=== PATIENT | male | born 1945 | race Caucasian/White ===

== ENCOUNTER → 2017-02-16 | Outpatient (CLI) | payer OTHER ==
[~2017-02-16] MED LIST: ASPI81CH43; BENA5TAB3; BP MED; LISI-275; LOVA20TA63; NITR0.4S31; PROPANOLOL
== END | disposition home or self-care (01) ==
LOC: LAB 07:00
DX: R79.89 Other specified abnormal findings of blood chemistry (principal)
CPT/HCPCS: 36415; 82565; 84520

== ENCOUNTER → 2017-02-19 | Outpatient (CLI) | payer OTHER ==
[~2017-02-19] MED LIST changes: +ASPI81TA27 PO; +BENA10TA3 PO; +FINA5TAB4 PO; +GABA-494 PO; +LOVA40TA72 PO; +PRO20T OR
== END | disposition home or self-care (01) ==
LOC: LAB 09:23
PROVIDERS: ATTEND Internal Medicine Gastroenterology
DX: Z01.812 Encounter for preprocedural laboratory examination (principal)

== ENCOUNTER → 2017-02-23 | Day surgery (SDC) | payer OTHER ==
[2017-02-19 10:14] LABS: Basophils # (auto) 0 uL; Basophils % (auto) 0.3 % (0.0-2.0); Eosinophils # (auto) 0.1 uL; Eosinophils % (auto) 1.4 % (0.0-7.0); Hematocrit 29.9 % (41.0-53.0); Hemoglobin 10.1 g/dL (13.5-17.5); Lymphocytes # (auto) 3.6 uL; Mean Corpuscular Hgb Conc. 33.6 g/dL (32.0-36.0); Mean Corpuscular Volume 92.2 fL (80.0-100.0); Mean Platelet Volume 8.9 fL (7.4-10.4); Monocytes # (auto) 0.4 uL; Monocytes % (auto) 4.6 % (0.0-12.0); Neutrophils # (auto) 3.7 uL; Neutrophils % (auto) 47.7 % (37.0-80.0); Platelet Count (auto) 90 10^3/uL (140-450); Red Cell Distribution Width 17.6 % (11.6-16.0); White Blood Cell 7.8 10^3/uL (4.4-10.8)
[2017-02-19 10:25] LABS: INR 1.06 (0.9-1.15); Partial Thromboplastin Time 25.3 sec (22.64-33.71); Prothrombin Time 10.9 sec (9.37-12.3)
[~2017-02-23] VITALS: Ht 175.3 cm; Wt 59.0 kg
[~2017-02-23] MED LIST changes: -ASPI81CH43; -BENA5TAB3; -BP MED; +LIDOCAINE VISCOUS 2% 15ML UD ONE; -LISI-275; -LOVA20TA63; +MIDAZOLAM HCL 5 MG/ML-1ML VIAL ONE; -NITR0.4S31; -PROPANOLOL; +SODIUM CHLORIDE LOCK 10 ML ONE; +diphenhdrAMINE HCL 50 MG/1 ML VL ONE
[2017-02-23] MEDS: MIDAZOLAM HCL 5 MG/ML-1ML VIAL ONE ×2 (09:56→09:59)
[2017-02-23] MEDS: fentaNYL CITRATE 100 MCG/2 ML VL ONE ×2 (09:56→09:59)
[2017-02-23 11:10] VITALS: BP 105/58
== END ==
LOC: GI 08:02
PROVIDERS: ATTEND Internal Medicine Gastroenterology
DX: K57.30 Diverticulosis of large intestine without perforation or abscess without bleeding (principal); K56.2 Volvulus; Q27.33 Arteriovenous malformation of digestive system vessel; D64.9 Anemia, unspecified; F10.99 Alcohol use, unspecified with unspecified alcohol-induced disorder; Z87.891 Personal history of nicotine dependence; Z95.1 Presence of aortocoronary bypass graft
CPT/HCPCS: 36415; 43235; 45378; 85025; 85610; 85730; J2250

== ENCOUNTER 2017-03-13 13:19 | Inpatient (IN) | payer OTHER ==
[~2017-03-13] VITALS: Ht 175.3 cm; Wt 44.3 kg
[~2017-03-13 13:19] MED LIST changes: -LIDOCAINE VISCOUS 2% 15ML UD ONE; -MIDAZOLAM HCL 5 MG/ML-1ML VIAL ONE; -SODIUM CHLORIDE LOCK 10 ML ONE; -diphenhdrAMINE HCL 50 MG/1 ML VL ONE
[2017-03-13 14:02] LABS: Basophils # (auto) 0 uL; Basophils % (auto) 0.4 % (0.0-2.0); Eosinophils # (auto) 0.2 uL; Eosinophils % (auto) 2.4 % (0.0-7.0); Hematocrit 31.3 % (41.0-53.0); Hemoglobin 10.3 g/dL (13.5-17.5); Lymphocytes # (auto) 4.7 uL; Lymphocytes % (auto) 49.3 % (10.0-50.0); Mean Corpuscular Hemoglobin 31.7 pg (28.0-32.0); Mean Corpuscular Volume 95.9 fL (80.0-100.0); Mean Platelet Volume 9.8 fL (7.4-10.4); Monocytes # (auto) 0.4 uL; Monocytes % (auto) 4.5 % (0.0-12.0); Neutrophils # (auto) 4.1 uL; Neutrophils % (auto) 43.4 % (37.0-80.0); Platelet Count (auto) 119 10^3/uL (140-450); Red Cell Distribution Width 16.7 % (11.6-16.0); White Blood Cell 9.5 10^3/uL (4.4-10.8)
[2017-03-13 14:38] LABS: Albumin 3.6 g/dL (3.4-5.0); Alkaline Phosphatase 130 U/L (45-117); Anion Gap 14 (5-15); Aspartate Aminotransferase 15 U/L (15-37); BUN/Creatinine Ratio 20.3; Bilirubin, Total 0.4 mg/dL (0.2-1.0); Blood Urea Nitrogen 79 mg/dL (7-18); Calcium 8.2 mg/dL (8.5-10.1); Carbon Dioxide 10 mmol/L (21-32); Chloride 121 mmol/L (98-107); GFR African American 20 mL/min; GFR Non-African American 16 mL/min; Glucose 100 mg/dL (74-106); Sodium 145 mmol/L (136-145); Total Protein 6.3 g/dL (6.4-8.2)
[2017-03-13 14:56] LABS: Potassium 6.2 mmol/L (3.5-5.1)
[2017-03-13 17:38] LABS: Urine Bilirubin Negative (Negative); Urine Blood Negative /uL (Negative); Urine Color Yellow (Yellow); Urine Glucose Normal (Normal); Urine Ketone Negative (Negative); Urine Nitrite Negative (Negative); Urine RBC <1 /hpf (0 - 3); Urine Squamous Epithelial Cell FEW /hpf (<5); Urine Urobilinogen Normal (Negative)
[2017-03-13] MEDS ORDERED: FUROSEMIDE 40 MG/4 ML VIAL IV ONE (18:30)
[2017-03-13] MEDS ORDERED: CALCIUM GLUC 4.65 MEQ/10ML 4.65 MEQ in SODIUM CHL 0.9% 50 ML IV ONE (18:30)
[2017-03-13] MEDS ORDERED: ALBUTEROL SULF 2.5 MG/0.5ML(0.5%) NEB SOLN NEB ONE (18:30)
[2017-03-13] MEDS ORDERED: SODIUM BICARBONATE 8.4 % INJ 50ML VIAL IV ONE (18:30)
[2017-03-13] MEDS ORDERED: PROP60CA8 PO (21:00)
[2017-03-13] MEDS ORDERED: HYDR25TA4 PO (21:00)
[2017-03-13] MEDS ORDERED: FINA5TAB4 PO (21:00)
[2017-03-13] MEDS ORDERED: POTA10TA34 PO (21:00)
[2017-03-13] MEDS ORDERED: LOVA40TA72 PO (21:00)
[2017-03-13] MEDS ORDERED: FURO40TA4 PO (21:00)
[2017-03-13] MEDS ORDERED: ASP81EC PO (21:00)
[2017-03-13] MEDS ORDERED: BENA10TA3 PO (21:00)
[2017-03-13 21:30] LABS: INR 1.11 (0.9-1.15)
[2017-03-13 21:47] LABS: B-Type Natriuretic Peptide 118.56 pg/mL (0-100); Temperature: 23.4 C (20.0-25.0)
[2017-03-13] MEDS ORDERED: NITROGLYCERIN 0.4 MG SL TAB SL PRN (23:45)
[2017-03-13] MEDS ORDERED: HYDROcodone-ACET 5/325MG TAB PO PRN (23:45)
[2017-03-13] MEDS ORDERED: ONDANSETRON HCL 4 MG/2 ML VIAL IV PRN (23:45)
[2017-03-13] MEDS ORDERED: TEMAZEPAM 15 MG CAP PO PRN (23:45)
[2017-03-13] MEDS ORDERED: MORPHINE SULF INJ 2 MG/ML SYRINGE 1ML IV PRN (23:45)
[2017-03-13] MEDS ORDERED: ENOXAPARIN SOD 60 MG/0.6 ML SYRINGE SC ONE (23:45)
[2017-03-13] MEDS ORDERED: ACETAMINOPHEN 325 MG TAB PO PRN (23:45)
[2017-03-14 01:30] VITALS: BP 127/71
[2017-03-14 05:43] VITALS: BP 136/61
[2017-03-14 05:56] LABS: Basophils # (auto) 0 uL; Basophils % (auto) 0.4 % (0.0-2.0); DEFINITIVE VIEW TRANSMISSION; Eosinophils # (auto) 0.1 uL; Eosinophils % (auto) 1.3 % (0.0-7.0); Hematocrit 30.4 % (41.0-53.0); Hemoglobin 9.7 g/dL (13.5-17.5); Lymphocytes # (auto) 5.6 uL; Lymphocytes % (auto) 53.6 % (10.0-50.0); Mean Corpuscular Volume 97.1 fL (80.0-100.0); Mean Platelet Volume 10.1 fL (7.4-10.4); Monocytes # (auto) 0.6 uL; Monocytes % (auto) 5.3 % (0.0-12.0); Neutrophils # (auto) 4.1 uL; Neutrophils % (auto) 39.4 % (37.0-80.0); Platelet Count (auto) 88 10^3/uL (140-450); Red Cell Distribution Width 16.3 % (11.6-16.0); White Blood Cell 10.4 10^3/uL (4.4-10.8)
[2017-03-14 06:22] LABS: Potassium 5.2 mmol/L (3.5-5.1)
[2017-03-14 06:39] LABS: Albumin 3.4 g/dL (3.4-5.0); BUN/Creatinine Ratio 20.9; Calcium 8.3 mg/dL (8.5-10.1)
[2017-03-14 06:41] LABS: Bilirubin, Total 0.5 mg/dL (0.2-1.0); Total Protein 5.9 g/dL (6.4-8.2)
[2017-03-14 08:00] VITALS: BP 103/49
[2017-03-14] MEDS ORDERED: SOD CHL 0.45% 1,000 ML IV SCH (08:15)
[2017-03-14] MEDS: cefTRIAXone 1GM/50ML D5W 50 ML IV SCH (08:48)
[2017-03-14] MEDS ORDERED: GASTROGRAFIN 30 ML SOL ONE (08:50)
[2017-03-14] MEDS ORDERED: FUROSEMIDE 40 MG TAB PO SCH (10:00)
[2017-03-14] MEDS ORDERED: ENOXAPARIN SOD 40 MG/0.4 ML SYRINGE SC SCH (10:00)
[2017-03-14] MEDS ORDERED: HCTZ 25 MG TAB PO SCH (10:00)
[2017-03-14] MEDS ORDERED: BENAZEPRIL HCL 10 MG TAB PO SCH (10:00)
[2017-03-14] MEDS: ENOXAPARIN SOD 30 MG/0.3 ML SYRINGE SC SCH (10:38)
[2017-03-14] MEDS: FINASTERIDE 5 MG TAB PO SCH (10:39)
[2017-03-14] MEDS: ASPirin 81 mg TAB PO SCH (10:39)
[2017-03-14] MEDS: FAMOTIDINE 20 MG TAB PO SCH ×2 (10:39→21:33)
[2017-03-14] MEDS: PROPRANOLOL HCL 20 MG TAB PO SCH (10:40)
[2017-03-14] MEDS ORDERED: SODIUM BICARBONATE 8.4 % INJ 50ML VIAL IV ONE (11:30)
[2017-03-14] MEDS: SODIUM BICARBONATE 50ML VIAL 100 ML in D5W 5% 1,000 ML IV SCH ×2 (11:50→23:00)
[2017-03-14 12:00] VITALS: BP 139/77
[2017-03-14 17:00] VITALS: BP 144/69
[2017-03-14] MEDS: PRAVASTATIN SODIUM 20 MG TAB PO SCH (21:33)
[2017-03-14 22:00] VITALS: BP 109/55
[2017-03-14] MEDS ORDERED: PATIENTS OWN MEDICATION (lovastatin 40 MG) PO SCH ×2 (22:00)
[2017-03-15] VITALS (10 sets, daily range): BP systolic 95–115; BP diastolic 41–61
[2017-03-15 06:00] LABS: Albumin 2.5 g/dL (3.4-5.0); BUN/Creatinine Ratio 24.3; Bilirubin, Total 0.3 mg/dL (0.2-1.0); Calcium 7.4 mg/dL (8.5-10.1); Potassium 4.1 mmol/L (3.5-5.1); Total Protein 4.3 g/dL (6.4-8.2); Uric Acid 8.6 mg/dL (3.5-7.2)
[2017-03-15 07:05] LABS: DEFINITIVE VIEW TRANSMISSION; Hematocrit 22.4 % (41.0-53.0); Hemoglobin 7.4 g/dL (13.5-17.5); Mean Corpuscular Hemoglobin 31.1 pg (28.0-32.0); Mean Corpuscular Hgb Conc. 32.9 g/dL (32.0-36.0); Mean Corpuscular Volume 94.5 fL (80.0-100.0); Mean Platelet Volume 9.7 fL (7.4-10.4); Platelet Count (auto) 58 10^3/uL (140-450); Red Cell Distribution Width 16.3 % (11.6-16.0); White Blood Cell 5.6 10^3/uL (4.4-10.8)
[2017-03-15 07:16] LABS: Metamyelocytes % 0; Myelocytes % 0; Promyelocytes % 0; Reactive Lymphocytes 0
[2017-03-15] MEDS: SODIUM BICARBONATE 50ML VIAL 100 ML in D5W 5% 1,000 ML IV SCH ×2 (08:30→19:45)
[2017-03-15] MEDS: cefTRIAXone 1GM/50ML D5W 50 ML IV SCH (08:36)
[2017-03-15] MEDS: FAMOTIDINE 20 MG TAB PO SCH ×2 (09:49→21:47)
[2017-03-15] MEDS: FINASTERIDE 5 MG TAB PO SCH (09:50)
[2017-03-15] MEDS: PROPRANOLOL HCL 20 MG TAB PO SCH (10:00)
[2017-03-15] MEDS: ENOXAPARIN SOD 30 MG/0.3 ML SYRINGE SC SCH (10:00)
[2017-03-15] MEDS: ASPirin 81 mg TAB PO SCH (10:40)
[2017-03-15 14:30] LABS: Platelet Estimate Decreased
[2017-03-15 14:31] LABS: Burr Cells MODERATE
[2017-03-15] MEDS: PRAVASTATIN SODIUM 20 MG TAB PO SCH (21:47)
[2017-03-16 05:00] VITALS: BP 113/60
[2017-03-16 06:20] LABS: DEFINITIVE VIEW TRANSMISSION; Hematocrit 26.8 % (41.0-53.0); Hemoglobin 8.9 g/dL (13.5-17.5); Mean Corpuscular Hemoglobin 30.7 pg (28.0-32.0); Mean Corpuscular Hgb Conc. 33.3 g/dL (32.0-36.0); Mean Corpuscular Volume 92.1 fL (80.0-100.0); Mean Platelet Volume 9.8 fL (7.4-10.4); Platelet Count (auto) 56 10^3/uL (140-450); Red Cell Distribution Width 16.1 % (11.6-16.0); White Blood Cell 4.9 10^3/uL (4.4-10.8)
[2017-03-16 06:23] LABS: Metamyelocytes % 0; Myelocytes % 0; Promyelocytes % 0; Reactive Lymphocytes 0
[2017-03-16] MEDS: SODIUM BICARBONATE 50ML VIAL 100 ML in D5W 5% 1,000 ML IV SCH (06:48)
[2017-03-16 06:49] LABS: Albumin 2.4 g/dL (3.4-5.0); BUN/Creatinine Ratio 22.4; Bilirubin, Total 0.5 mg/dL (0.2-1.0); Calcium 7.6 mg/dL (8.5-10.1); Potassium 3.9 mmol/L (3.5-5.1); Total Protein 4.3 g/dL (6.4-8.2)
[2017-03-16 07:12] LABS: Platelet Estimate Decreased
[2017-03-16 07:13] LABS: Burr Cells FEW
[2017-03-16 07:26] VITALS: BP 125/96
[2017-03-16 08:00] VITALS: BP 125/96
[2017-03-16] MEDS: cefTRIAXone 1GM/50ML D5W 50 ML IV SCH (09:03)
[2017-03-16] MEDS: ENOXAPARIN SOD 30 MG/0.3 ML SYRINGE SC SCH (10:00)
[2017-03-16] MEDS: ASPirin 81 mg TAB PO SCH (10:00)
[2017-03-16] MEDS: PROPRANOLOL HCL 20 MG TAB PO SCH (10:47)
[2017-03-16] MEDS: FAMOTIDINE 20 MG TAB PO SCH (10:48)
[2017-03-16] MEDS: FINASTERIDE 5 MG TAB PO SCH (10:48)
[2017-03-16 11:30] VITALS: BP 132/64
[2017-03-16 12:33] VITALS: BP 132/64
== END 2017-03-16 13:52 | disposition home or self-care (01) | DRG 683 ==
LOC: ER 13:19 → TELE 13:20 → TELE-CENTR 03-14 01:01
PROVIDERS: ADMIT Internal Medicine; ATTEND Family Medicine
PROC: 30233N1 Transfusion of Nonautologous Red Blood Cells into Peripheral Vein, Percutaneous Approach (ICD-10-PCS; principal; 2017-03-15)
DX: N17.0 Acute kidney failure with tubular necrosis (principal); E46 Unspecified protein-calorie malnutrition; I13.0 Hypertensive heart and chronic kidney disease with heart failure and stage 1 through stage 4 chronic kidney disease, or unspecified chronic kidney disease; I50.40 Unspecified combined systolic (congestive) and diastolic (congestive) heart failure; N39.0 Urinary tract infection, site not specified; E87.2 Acidosis; Z68.1 Body mass index [BMI] 19.9 or less, adult; K92.2 Gastrointestinal hemorrhage, unspecified; N13.8 Other obstructive and reflux uropathy; R64 Cachexia; D63.8 Anemia in other chronic diseases classified elsewhere; E78.5 Hyperlipidemia, unspecified; E87.5 Hyperkalemia; R74.8 Abnormal levels of other serum enzymes; N40.1 Benign prostatic hyperplasia with lower urinary tract symptoms; E87.8 Other disorders of electrolyte and fluid balance, not elsewhere classified; I25.10 Atherosclerotic heart disease of native coronary artery without angina pectoris; R19.5 Other fecal abnormalities; K21.9 Gastro-esophageal reflux disease without esophagitis; N18.9 Chronic kidney disease, unspecified; Z85.528 Personal history of other malignant neoplasm of kidney; Z87.891 Personal history of nicotine dependence; Z90.5 Acquired absence of kidney; Z95.1 Presence of aortocoronary bypass graft; Z79.899 Other long term (current) drug therapy
CPT/HCPCS: 36415; 36600; 71010; 71250; 74176; 76775; 78582; 80053; 81001; 82270; 82306; 82570; 82728; 82805; 83540; 83550; 83880; 83970; 84100; 84132; 84156; 84300; 84484; 84550; 85007; 85025; 85027; 85379; 85610; 85730; 86850; 86900; 86901; 86920; 93005; 93306; 93970; 94640; 96365; 96372; 96375; J0696

== ENCOUNTER → 2017-04-09 | Outpatient (CLI) | payer OTHER ==
[~2017-04-09] MED LIST changes: +ASP81EC PO; +FURO40TA4 PO; +HYDR25TA4 PO; +POTA10TA34 PO; +PROP60CA8 PO
[2017-04-09 07:39] LABS: Hematocrit 33.6 % (41.0-53.0); Hemoglobin 11.3 g/dL (13.5-17.5); Mean Corpuscular Hemoglobin 30.7 pg (28.0-32.0); Mean Corpuscular Hgb Conc. 33.5 g/dL (32.0-36.0); Mean Corpuscular Volume 91.7 fL (80.0-100.0); Mean Platelet Volume 8.9 fL (7.4-10.4); Platelet Count (auto) 116 10^3/uL (140-450); Red Cell Distribution Width 15.5 % (11.6-16.0); White Blood Cell 6.8 10^3/uL (4.4-10.8)
[2017-04-09 07:46] LABS: Metamyelocytes % 0; Myelocytes % 0; Promyelocytes % 0; Reactive Lymphocytes 0
[2017-04-09 07:57] LABS: Anisocytosis Slight; Platelet Estimate Decreased
[2017-04-09 08:45] LABS: Albumin 3.2 g/dL (3.4-5.0); BUN/Creatinine Ratio 16.3; Bilirubin, Total 0.5 mg/dL (0.2-1.0); Potassium 3.1 mmol/L (3.5-5.1); Total Protein 5.4 g/dL (6.4-8.2)
== END | disposition home or self-care (01) ==
LOC: LAB 07:05
DX: D64.9 Anemia, unspecified (principal)
CPT/HCPCS: 36415; 80053; 80061; 82270; 84443; 85007; 85027

== ENCOUNTER 2017-05-15 21:01 | Inpatient (IN) | payer OTHER ==
[~2017-05-15] VITALS: Ht 172.7 cm; Wt 52.0 kg
[~2017-05-15 21:01] MED LIST changes: -BENA10TA3 PO; +BENA10TA9 PO
[2017-05-15 22:36] LABS: Basophils # (auto) 0 uL; Basophils % (auto) 0.2 % (0.0-2.0); CONDITION AutoValidated; DEFINITIVE SEE PRINTOUT; Eosinophils # (auto) 0 uL; Eosinophils % (auto) 0.3 % (0.0-7.0); Hematocrit 31.4 % (41.0-53.0); Hemoglobin 10.6 g/dL (13.5-17.5); Lymphocytes # (auto) 1.2 uL; Lymphocytes % (auto) 21.1 % (10.0-50.0); Mean Corpuscular Hemoglobin 31.3 pg (28.0-32.0); Mean Corpuscular Hgb Conc. 33.9 g/dL (32.0-36.0); Mean Corpuscular Volume 92.4 fL (80.0-100.0); Mean Platelet Volume 10.7 fL (7.4-10.4); Monocytes # (auto) 0.4 uL; Monocytes % (auto) 6.7 % (0.0-12.0); Neutrophils # (auto) 4.2 uL; Neutrophils % (auto) 71.7 % (37.0-80.0); Platelet Count (auto) 59 10^3/uL (140-450); Red Cell Distribution Width 18.3 % (11.6-16.0); White Blood Cell 5.8 10^3/uL (4.4-10.8)
[2017-05-15 22:44] LABS: Albumin 1.7 g/dL (3.4-5.0); BUN/Creatinine Ratio 18.5; Calcium 6.6 mg/dL (8.5-10.1)
[2017-05-15 22:52] LABS: INR 1.15 (0.9-1.15); Prothrombin Time 12.6 sec (9.37-12.3)
[2017-05-15 23:00] LABS: Total Protein 3.9 g/dL (6.4-8.2)
[2017-05-15 23:06] LABS: Potassium 1.8 mmol/L (3.5-5.1)
[2017-05-15] MEDS ORDERED: POTASSIUM CHL 20 Meq TABLET PO ONE (23:30)
[2017-05-15] MEDS ORDERED: SODIUM CHLORIDE 0.9% 1,000 ML IV ONE (23:30)
[2017-05-16] MEDS ORDERED: LEV50T GT (00:59)
[2017-05-16] MEDS: POTASSIUM CHL 20MEQ/100ML 100 ML IV SCH ×2 (01:33)
[2017-05-16 01:38] LABS: Urine Bilirubin Negative (Negative); Urine Blood 2+ /uL (Negative); Urine Color Yellow (Yellow); Urine Glucose Normal (Normal); Urine Ketone Negative (Negative); Urine Nitrite Negative (Negative); Urine RBC 23 /hpf (0 - 3); Urine Squamous Epithelial Cell FEW /hpf (<5); Urine Urobilinogen Normal (Negative); Urine WBC Clumps PRESENT /hpf (None Seen); Urine pH 5.5 (5.0-8.0)
[2017-05-16 03:01] LABS: B-Type Natriuretic Peptide 503.25 pg/mL (0-100)
[2017-05-16 03:03] LABS: Temperature: 23.8 C (20.0-25.0)
[2017-05-16] MEDS ORDERED: cefTRIAXone 1GM/50ML D5W 50 ML IV ONE (09:30)
[2017-05-16] MEDS ORDERED: LEVOTHYROXINE SODIUM 50 MCG TAB PO ONE (09:45)
[2017-05-16] MEDS: SODIUM CHLORIDE 0.9% 1,000 ML IV SCH ×2 (09:56→17:47)
[2017-05-16] MEDS ORDERED: BENAZEPRIL HCL 10 MG TAB PO SCH (10:00)
[2017-05-16] MEDS ORDERED: MORPHINE SULF INJ 2 MG/ML SYRINGE 1ML IV PRN (10:00)
[2017-05-16] MEDS ORDERED: TEMAZEPAM 15 MG CAP PO PRN (10:00)
[2017-05-16] MEDS ORDERED: FAMOTIDINE 20 MG TAB PO SCH (10:00)
[2017-05-16] MEDS ORDERED: ACETAMINOPHEN 325 MG TAB PO PRN (10:00)
[2017-05-16] MEDS ORDERED: NITROGLYCERIN 0.4 MG SL TAB SL PRN (10:00)
[2017-05-16] MEDS ORDERED: ONDANSETRON HCL 4 MG/2 ML VIAL IV PRN (10:00)
[2017-05-16] MEDS: metroNIDAZOLE 500MG/100ML 100 ML IV SCH ×3 (11:09→23:00)
[2017-05-16] MEDS: FAMOTIDINE 20 MG TAB PO SCH (11:10)
[2017-05-16] MEDS: ASPirin-EC 81 mg tab PO SCH (11:10)
[2017-05-16] MEDS: MULTIPLE VITAMIN TAB PO SCH (11:10)
[2017-05-16 12:00] VITALS: BP 115/42
[2017-05-16 12:10] LABS: REFLEX LACTIC ACID YES OR NO YES
[2017-05-16] MEDS ORDERED: POTASSIUM CHL 20 Meq TABLET PO SCH (12:30)
[2017-05-16] MEDS ORDERED: POTASSIUM CHL 10% (20 MEQ/15ML) ORAL SOLN PO SCH (12:38)
[2017-05-16 13:23] VITALS: BP 115/42
[2017-05-16] MEDS: BOOST PLUS 8 ounce PO SCH ×3 (13:26→21:51)
[2017-05-16] MEDS: POTASSIUM CHL 10% (20 MEQ/15ML) ORAL SOLN PO SCH ×2 (13:26→21:51)
[2017-05-16 15:06] LABS: BUN/Creatinine Ratio 19.4
[2017-05-16 15:09] LABS: Potassium 2.5 mmol/L (3.5-5.1)
[2017-05-16 15:27] LABS: REFLEX LACTIC ACID YES OR NO NO
[2017-05-16] MEDS ORDERED: POTASSIUM CHLORIDE 40 MEQ, LIDOCAINE 1% (LOCAL ANESTH.) 4 ML in SODIUM CHL 0.9% 250 ML IV ONE (15:45)
[2017-05-16] MEDS ORDERED: [UNRECOGNIZED DRUG - CODE] PO (16:41)
[2017-05-16] MEDS ORDERED: ASPI-498 OR (16:41)
[2017-05-16] MEDS ORDERED: GABA-494 PO (16:41)
[2017-05-16] MEDS ORDERED: TRAM50TA2 PO (16:41)
[2017-05-16] MEDS ORDERED: HYDR25TA4 PO (16:41)
[2017-05-16] MEDS ORDERED: FINA5TAB4 PO (16:41)
[2017-05-16] MEDS ORDERED: FERR27TA2 PO (16:41)
[2017-05-16] MEDS ORDERED: ATOR20TA PO (16:41)
[2017-05-16] MEDS ORDERED: PRO20T PO (16:41)
[2017-05-16 17:36] VITALS: BP 99/56
[2017-05-16 21:40] VITALS: BP 91/45
[2017-05-16] MEDS: ATORVASTATIN 20 MG TAB PO SCH (21:44)
[2017-05-16] MEDS: HYDROcodone-ACET 5/325MG TAB PO PRN (21:54)
[2017-05-16 23:09] LABS: BUN/Creatinine Ratio 19.2; Calcium 6.7 mg/dL (8.5-10.1)
[2017-05-16 23:15] LABS: Potassium 2.9 mmol/L (3.5-5.1)
[2017-05-17] VITALS (35 sets, daily range): BP systolic 67–137; BP diastolic 32–79
[2017-05-17] MEDS ORDERED: POTASSIUM CHL 20 Meq TABLET PO ONE (01:00)
[2017-05-17] MEDS: SODIUM CHLORIDE 0.9% 1,000 ML IV SCH ×3 (01:50→19:47)
[2017-05-17] MEDS: HYDROcodone-ACET 5/325MG TAB PO PRN (04:27)
[2017-05-17] MEDS: metroNIDAZOLE 500MG/100ML 100 ML IV SCH ×4 (04:27→23:02)
[2017-05-17] MEDS: BOOST PLUS 8 ounce PO SCH ×4 (06:05→22:00)
[2017-05-17] MEDS: LEVOTHYROXINE SODIUM 50 MCG TAB PO SCH (06:18)
[2017-05-17 06:24] LABS: Basophils # (auto) 0 uL; Basophils % (auto) 0.1 % (0.0-2.0); CONDITION AutoValidated; DEFINITIVE SEE PRINTOUT; Eosinophils # (auto) 0 uL; Eosinophils % (auto) 0.1 % (0.0-7.0); Hematocrit 43.2 % (41.0-53.0); Lymphocytes # (auto) 4.5 uL; Lymphocytes % (auto) 24.4 % (10.0-50.0); Mean Corpuscular Hemoglobin 30.7 pg (28.0-32.0); Mean Corpuscular Hgb Conc. 32.4 g/dL (32.0-36.0); Mean Corpuscular Volume 94.6 fL (80.0-100.0); Mean Platelet Volume 13.5 fL (7.4-10.4); Monocytes # (auto) 1.3 uL; Monocytes % (auto) 7.1 % (0.0-12.0); Neutrophils # (auto) 12.5 uL; Neutrophils % (auto) 68.3 % (37.0-80.0); Platelet Count (auto) 116 10^3/uL (140-450); Red Cell Distribution Width 19.7 % (11.6-16.0); SUSPECT SEE PRINTOUT; White Blood Cell 18.3 10^3/uL (4.4-10.8)
[2017-05-17 06:53] LABS: Potassium 3.5 mmol/L (3.5-5.1)
[2017-05-17] MEDS: ALBUTEROL SULF 2.5 MG/0.5ML(0.5%) NEB SOLN NEB PRN (06:57)
[2017-05-17 07:01] LABS: BUN/Creatinine Ratio 18.3; Calcium 7.4 mg/dL (8.5-10.1)
[2017-05-17 07:05] LABS: Bilirubin, Total 0.7 mg/dL (0.2-1.0); Total Protein 4.7 g/dL (6.4-8.2)
[2017-05-17] MEDS: cefTRIAXone 1GM/50ML D5W 50 ML IV SCH (08:44)
[2017-05-17] MEDS: FAMOTIDINE 20 MG TAB PO SCH (09:52)
[2017-05-17] MEDS: MULTIPLE VITAMIN TAB PO SCH (09:52)
[2017-05-17] MEDS: ASPirin-EC 81 mg tab PO SCH (09:52)
[2017-05-17] MEDS: POTASSIUM CHL 20 Meq TABLET PO SCH ×2 (09:52→22:00)
[2017-05-17] MEDS ORDERED: SODIUM CHLORIDE 0.9% 2,000 ML IV ONE (12:00)
[2017-05-17] MEDS ORDERED: VANCOMYCIN PER PHARMACY 0 MG IV SCH (13:15)
[2017-05-17] MEDS: NOREPINEPHRINE BITARTRATE 250 ML IV SCH (14:05)
[2017-05-17] MEDS ORDERED: SODIUM BICARBONATE 8.4 % INJ 50ML VIAL IV ONE (14:15)
[2017-05-17] MEDS ORDERED: SODIUM CHLORIDE 0.9% 1,000 ML IV ONE ×2 (14:15)
[2017-05-17] MEDS: ALBUMIN 25% 100 ML IV SCH ×2 (15:00→17:23)
[2017-05-17] MEDS: MORPHINE SULF INJ 2 MG/ML SYRINGE 1ML IV PRN (18:37)
[2017-05-17] MEDS ORDERED: VANCOMYCIN 750 MG in D5W 5% 250 ML IV ONE (20:00)
[2017-05-17 20:18] LABS: Basophils # (auto) 0 uL; CONDITION AutoValidated; DEFINITIVE SEE PRINTOUT; Eosinophils # (auto) 0 uL; SUSPECT SEE PRINTOUT
[2017-05-17 20:38] LABS: Hematocrit 30.3 % (41.0-53.0); Red Cell Distribution Width 19.2 % (11.6-16.0)
[2017-05-17 20:43] LABS: Calcium 6.8 mg/dL (8.5-10.1)
[2017-05-17 20:45] LABS: BUN/Creatinine Ratio 19.3
[2017-05-17 20:46] LABS: Basophils % (auto) 0.2 % (0.0-2.0); Eosinophils % (auto) 0.1 % (0.0-7.0); Hemoglobin 10.2 g/dL (13.5-17.5); Lymphocytes # (auto) 3.1 uL; Lymphocytes % (auto) 20.5 % (10.0-50.0); Mean Corpuscular Hemoglobin 31.2 pg (28.0-32.0); Mean Corpuscular Hgb Conc. 33.5 g/dL (32.0-36.0); Mean Platelet Volume 11.2 fL (7.4-10.4); Monocytes % (auto) 6.7 % (0.0-12.0); Neutrophils % (auto) 72.5 % (37.0-80.0); Platelet Count (auto) 117 10^3/uL (140-450); White Blood Cell 15.2 10^3/uL (4.4-10.8)
[2017-05-17 21:13] LABS: Platelet Estimate Decreased
[2017-05-17 21:14] LABS: Anisocytosis Slight; Burr Cells FEW; Ovalocytes FEW
[2017-05-17] MEDS: ATORVASTATIN 20 MG TAB PO SCH (22:00)
[2017-05-18] VITALS (90 sets, daily range): BP systolic 82–120; BP diastolic 31–66
[2017-05-18] MEDS: MORPHINE SULF INJ 2 MG/ML SYRINGE 1ML IV PRN ×2 (01:49→06:36)
[2017-05-18] MEDS: NOREPINEPHRINE BITARTRATE 250 ML IV SCH ×4 (03:10→22:00)
[2017-05-18 04:14] LABS: CONDITION AutoValidated; DEFINITIVE SEE PRINTOUT; Hemoglobin 10.5 g/dL (13.5-17.5); Mean Corpuscular Hemoglobin 31.5 pg (28.0-32.0); Mean Corpuscular Volume 92.8 fL (80.0-100.0); Mean Platelet Volume 10.1 fL (7.4-10.4); Platelet Count (auto) 105 10^3/uL (140-450); SUSPECT SEE PRINTOUT; White Blood Cell 17.3 10^3/uL (4.4-10.8)
[2017-05-18 04:15] LABS: Metamyelocytes % 0; Myelocytes % 0; Promyelocytes % 0; Reactive Lymphocytes 0
[2017-05-18 04:32] LABS: Albumin 2.5 g/dL (3.4-5.0); BUN/Creatinine Ratio 21.1; Bilirubin, Total 0.8 mg/dL (0.2-1.0); Calcium 6.4 mg/dL (8.5-10.1); Potassium 3.1 mmol/L (3.5-5.1); Total Protein 3.9 g/dL (6.4-8.2)
[2017-05-18 05:08] LABS: Burr Cells FEW; Ovalocytes FEW; Platelet Estimate Decreased
[2017-05-18] MEDS: metroNIDAZOLE 500MG/100ML 100 ML IV SCH (05:30)
[2017-05-18] MEDS: BOOST PLUS 8 ounce PO SCH ×4 (06:00→21:50)
[2017-05-18] MEDS: LEVOTHYROXINE SODIUM 50 MCG TAB PO SCH (06:21)
[2017-05-18] MEDS: SODIUM CHLORIDE 0.9% 1,000 ML IV SCH (06:36)
[2017-05-18] MEDS: cefTRIAXone 1GM/50ML D5W 50 ML IV SCH (08:44)
[2017-05-18] MEDS: MULTIPLE VITAMIN TAB PO SCH (10:00)
[2017-05-18] MEDS: ASPirin-EC 81 mg tab PO SCH (10:00)
[2017-05-18] MEDS: POTASSIUM CHL 20 Meq TABLET PO SCH (10:00)
[2017-05-18] MEDS: FAMOTIDINE 20 MG TAB PO SCH (10:00)
[2017-05-18 10:30] LABS: Allen Test Yes; Base Excess -14.7 mmol/L (-2.0-2.0); Blood COHb 0.3 % (0.5-1.5); Blood MetHb 0.3 % (0.0-1.5); HCO3 13.5 mmol/L (22-26.0); MODE OXYMIZER; O2Hb 94.4 % (94.0-97.0); PCO2 40.8 mmHg (35.0-45.0); PCO2(T) 40.8 mmHg (35.0-45.0); PO2 99.6 mmHg (80.0-100.0); PO2(T) 99.6 mmHg (80.0-100.0); Sample Type Arterial; pH 7.139 (7.350-7.450)
[2017-05-18] MEDS ORDERED: PIPERACILLIN-TAZOB 3.375GM 100 ML IV ONE (11:15)
[2017-05-18] MEDS ORDERED: SODIUM CHLORIDE 0.9% 1,000 ML IV SCH (11:25)
[2017-05-18] MEDS: ALBUMIN 25% 100 ML IV SCH ×2 (11:41→13:04)
[2017-05-18 13:18] LABS: Temperature: 22.5 C (20.0-25.0)
[2017-05-18] MEDS: SODIUM BICARBONATE 50ML VIAL 150 ML in D5W 5% 1,000 ML IV SCH (14:06)
[2017-05-18] MEDS: POTASSIUM CHL 20MEQ/100ML 100 ML IV SCH ×2 (16:16→17:30)
[2017-05-18] MEDS: PIPERACILLIN-TAZOB 2.25GM 50 ML IV SCH (20:16)
[2017-05-19] VITALS (46 sets, daily range): BP systolic 93–128; BP diastolic 33–67
[2017-05-19] MEDS: ALBUTEROL SULF 2.5 MG/0.5ML(0.5%) NEB SOLN NEB PRN (00:49)
[2017-05-19] MEDS: SODIUM BICARBONATE 50ML VIAL 150 ML in D5W 5% 1,000 ML IV SCH (02:01)
[2017-05-19] MEDS: PHENYLEPHRINE INJ 20 MG in SODIUM CHL 0.9% 250 ML IV SCH ×2 (02:02→07:19)
[2017-05-19] MEDS: PIPERACILLIN-TAZOB 2.25GM 50 ML IV SCH (04:04)
[2017-05-19] MEDS: NOREPINEPHRINE BITARTRATE 250 ML IV SCH ×2 (04:04→08:36)
[2017-05-19 05:50] LABS: CONDITION Y; DEFINITIVE SEE PRINTOUT; Hemoglobin 10.2 g/dL (13.5-17.5); SUSPECT SEE PRINTOUT; White Blood Cell 27.1 10^3/uL (4.4-10.8)
[2017-05-19 05:55] LABS: Hematocrit 30.7 % (41.0-53.0); Mean Corpuscular Hemoglobin 31.4 pg (28.0-32.0); Mean Corpuscular Hgb Conc. 33.3 g/dL (32.0-36.0); Mean Corpuscular Volume 94.2 fL (80.0-100.0); Mean Platelet Volume 10.3 fL (7.4-10.4); Platelet Count (auto) 142 10^3/uL (140-450)
[2017-05-19] MEDS: BOOST PLUS 8 ounce PO SCH (06:00)
[2017-05-19 06:10] LABS: Red Cell Distribution Width 20.2 % (11.6-16.0)
[2017-05-19 06:11] LABS: Metamyelocytes % 0; Myelocytes % 0; Promyelocytes % 0; Reactive Lymphocytes 0
[2017-05-19 06:34] LABS: Albumin 2.6 g/dL (3.4-5.0); BUN/Creatinine Ratio 17.4; Bilirubin, Total 0.5 mg/dL (0.2-1.0); Calcium 6.4 mg/dL (8.5-10.1); Magnesium 1.8 mg/dL (1.6-2.6); Total Protein 4.3 g/dL (6.4-8.2)
[2017-05-19 06:39] LABS: Potassium 4.1 mmol/L (3.5-5.1)
[2017-05-19 06:41] LABS: Hypersegmented Neutrophils Present
[2017-05-19 06:43] LABS: Burr Cells FEW; Platelet Estimate Decreased
[2017-05-19 06:44] LABS: Anisocytosis Slight; Ovalocytes FEW
[2017-05-19] MEDS ORDERED: MAGNESIUM SULFATE 1GM/100ML 100 ML IV ONE (10:45)
[2017-05-19] MEDS ORDERED: LINEZOLID 600MG/300ML 300 ML IV ONE (11:15)
[2017-05-19] MEDS ORDERED: LINEZOLID 600MG/300ML 300 ML IV SCH (22:00)
== END 2017-05-19 16:00 | disposition expired | DRG 871 ==
LOC: EDBD 21:01 → ER 21:03 → TELE 21:04 → TELE-EAST 05-16 11:57 → DOU IN ICU 05-17 12:28 → ICU WEST 05-17 15:14
PROVIDERS: ADMIT Internal Medicine; ATTEND Internal Medicine
DX: A41.51 Sepsis due to Escherichia coli [E. coli] (principal); E43 Unspecified severe protein-calorie malnutrition; I50.43 Acute on chronic combined systolic (congestive) and diastolic (congestive) heart failure; R65.21 Severe sepsis with septic shock; N17.0 Acute kidney failure with tubular necrosis; G92 Toxic encephalopathy; K57.92 Diverticulitis of intestine, part unspecified, without perforation or abscess without bleeding; I13.0 Hypertensive heart and chronic kidney disease with heart failure and stage 1 through stage 4 chronic kidney disease, or unspecified chronic kidney disease; N18.4 Chronic kidney disease, stage 4 (severe); N39.0 Urinary tract infection, site not specified; Z68.1 Body mass index [BMI] 19.9 or less, adult; E86.0 Dehydration; E87.6 Hypokalemia; K21.9 Gastro-esophageal reflux disease without esophagitis; W19.XXXA Unspecified fall, initial encounter; I25.10 Atherosclerotic heart disease of native coronary artery without angina pectoris; E78.5 Hyperlipidemia, unspecified; D69.6 Thrombocytopenia, unspecified; F32.9 Major depressive disorder, single episode, unspecified; I46.9 Cardiac arrest, cause unspecified; B95.2 Enterococcus as the cause of diseases classified elsewhere; D63.8 Anemia in other chronic diseases classified elsewhere; E83.51 Hypocalcemia; K44.9 Diaphragmatic hernia without obstruction or gangrene; E03.9 Hypothyroidism, unspecified; Z66 Do not resuscitate; Z82.49 Family history of ischemic heart disease and other diseases of the circulatory system; Z95.1 Presence of aortocoronary bypass graft; Y92.009 Unspecified place in unspecified non-institutional (private) residence as the place of occurrence of the external cause; Z87.891 Personal history of nicotine dependence
CPT/HCPCS: 36415; 36600; 51702; 71010; 73501; 74176; 80048; 80053; 80061; 80202; 80307; 81001; 82150; 82607; 82746; 82805; 83605; 83690; 83735; 83880; 84132; 84439; 84443; 84484; 85007; 85025; 85027; 85610; 85730; 86592; 87040; 87045; 87077; 87081; 87086; 87088; 87186; 87493; 87899; 93005; 94640; 95819; 96365; 96366; 96367; J0696; J2001; J2543; J3480; J3490; J7060